=== PATIENT | female | born 1995 | race Caucasian/White ===

== ENCOUNTER → 2017-01-07 | Outpatient (CLI) | payer OTHER ==
[2017-01-07 12:38] LABS: CH 30.4; CHCM 34.2; HCT 32.4 % (34.0-46.0); HDW 2.53; HGB 11.2 gm/dL (11.4-16.0); MCH 30.9 pg (25.0-35.0); MCHC 34.6 g/dL (31.0-37.0); MCV 89.3 fL (80.0-100.0); Mean Platelet Volume 6.5; RBC 3.63 m/uL (3.80-5.40); RDW 13.1 % (11.5-15.5); WBC 11.5 k/uL (4.0-11.0)
[2017-01-07 12:45] LABS: Glucose 82 mg/dL (74-99); Non-African American GFR(MDRD) >60 (>60 ml/min/1.73 sqM)
[2017-01-07 13:16] LABS: Hepatitis B Surface Ag Index 0.05
[2017-01-07 22:43] LABS: Treponemal Ab Non-Reactive (Non-Reactive)
[2017-01-08 04:55] LABS: Toxoplasma Antibody (IgG) <3.0 IU/mL (<7.2)
== END | disposition home or self-care (01) ==
LOC: LABWHC1 12:17
PROVIDERS: ATTEND Obstetrics & Gynecology
DX: O26.812 Pregnancy related exhaustion and fatigue, second trimester (principal); Z3A.00 Weeks of gestation of pregnancy not specified
CPT/HCPCS: 36415; 82565; 82947; 85027; 86762; 86777; 86778; 86780; 86850; 86900; 86901; 87340; 87390

== ENCOUNTER → 2017-03-10 | Outpatient (CLI) | payer OTHER ==
[2017-03-10 12:24] LABS: CH 28.9; CHCM 33.3; HCT 33.8 % (34.0-46.0); HDW 2.57; HGB 11.4 gm/dL (11.4-16.0); MCH 29.5 pg (25.0-35.0); MCHC 33.8 g/dL (31.0-37.0); MCV 87.4 fL (80.0-100.0); Mean Platelet Volume 6.4; RBC 3.87 m/uL (3.80-5.40); RDW 12.3 % (11.5-15.5); WBC 11.5 k/uL (3.8-10.6)
== END | disposition home or self-care (01) ==
LOC: LABWHC1 10:56
PROVIDERS: ATTEND Obstetrics & Gynecology
DX: Z34.02 Encounter for supervision of normal first pregnancy, second trimester (principal)
CPT/HCPCS: 36415; 82950; 85027

== ENCOUNTER 2020-02-04 21:50 | Outpatient (CLI) | payer OTHER, BC ==
[2020-02-05 00:52] VITALS: BP 127/58; PULSE 86; RESP 16; TEMP 99.5
--- NOTE | 2020-02-05 05:34 | P.MSEPDOC ---
Presenting Problems - Arrival Data Date of Arrival on Unit: 02/05/20 Time of Arrival on Unit: 21:50 Mode of Transport: Ambulatory - Complaint OB-Reason for Admission/Chief Complaint: Decreased Movement Medical History - Information : 2 Para: 1 Term: 1 : 0 Abortions: Spontaneous or Elective: 0 Number of Living Children: 1 - Gestational Age Gestational Age by CORY (wks/days): 38 Weeks and 3 Days - History Complications: GBS+ Review of Systems - Review of Systems Constitutional: No problems Breast: No problems ENT: No problems Cardiovascular: No problems Respiratory: No problems Gastrointestinal: No problems Genitourinary: No problems Musculoskeletal: No problems Neurological: No problems Skin: No problems Vital Signs - Temperature Temperature: 99.5 F Temperature Source: Temporal Artery Scan - Pulse Right Pulse Rate: 86 Pulse Assessment Method: Automatic Cuff - Respirations Respiratory Rate: 16 Oxygen Delivery Method: Room Air O2 Sat by Pulse Oximetry: 98 - Blood Pressure Right Arm Blood Pressure: 127/58 Blood Pressure Mean: 81 Blood Pressure Source: Automatic Cuff Physician Notification (Pre) - Physician Notified Physician Notified Date: 02/05/20 Physician Notified Time: 22:15 New Order Received: Yes - Notification Comment Comment: pt is okay to go home Medical Screen Scoring (Post) - Cervical Exam Dilation: Exam Deferred Effacement: Exam Deferred Membranes: Intact - Uterine Contractions Frequency: N/A Duration: N/A Intensity: N/A - Maternal Vital Signs Maternal Temperature: N/A Maternal Blood Pressure: N/A Signs of Preeclampsia: N/A Maternal Respirations: N/A - Maternal Trauma Maternal Trauma: N/A - Assessment - Baby A Heart Rate: 140 Heart Rate - NICHD Category: Category I (Normal) = 0 NST: Reactive Position: N/A Station: N/A - Total Score Total Score - Baby A: 0 Total Score - Baby B: 0 Total Score - Baby C: 0 - Post Treatment Level of Risk Post Treatment Level of Risk - Baby A: Low (0-5) Post Treatment Level of Risk - Baby B: Low (0-5) Post Treatment Level of Risk - Baby C: Low (0-5) Disposition - Disposition OB Disposition: Discharge to home Discharge Date: 02/05/20 Discharge Time: 22:20 I agree with the RN Medical Screening Exam: Yes Risk & Benefit of care provided described in d/c instruction: Yes Diagnosis: DECREASED MOVEMENTS, THIRD TRIMESTER, FETUS 1 (Patient has a reactive NST and has perceived movement after arrival on labor and deliv almaz.)
== END 2020-02-04 22:20 | disposition home or self-care (01) ==
LOC: FBPOP 21:50
PROVIDERS: ATTEND Obstetrics & Gynecology
DX: O36.8130 Decreased fetal movements, third trimester, not applicable or unspecified (principal); Z3A.38 38 weeks gestation of pregnancy
CPT/HCPCS: 59025; G0463; 99213

== ENCOUNTER 2020-02-15 11:19 | Inpatient (IN) | payer BC ==
--- NOTE | 2020-02-21 19:10 | P.HPOB ---
History of Present Illness H&P Date: 02/21/20 Chief Complaint: Postdates induction of labor This patient is a pleasant 24 yr female EDC 02/16/2020 estimated gestational age 40 6/7 weeks who presents to L&D for postdates induction of labor. has been uncomplicated. testing and monitoring has been normal. Review of Systems Genitourinary: Reports Menstruation: Reports amenorrhea Past Medical History Past Medical History: No Reported History Additional Past Medical History / Comment(s): 1st at 40 2/7 wks SROM, 8#10 boy History of Any Multi-Drug Resistant Organisms: None Reported Past Surgical History: No Surgical Hx Reported Past Anesthesia/Blood Transfusion Reactions: No Reported Reaction Past Psychological History: No Psychological Hx Reported Smoking Status: Never smoker Past Alcohol Use History: None Reported Past Drug Use History: None Reported - Past Family History Mother Family Medical History: No Reported History Medications and Allergies Home Medications Medication Instructions Recorded Confirmed Type Pnv 11/Iron Fum/Folic Acid/Om3 1 each PO DAILY 06/08/17 02/21/20 History [Virt-Micheal Dha Softgel] Allergies Allergy/AdvReac Type Severity Reaction Status Date / Time No Known Allergies Allergy Verified 02/21/20 01:26 Exam - OBG Physical Exam Abdomen: bowel sounds normal, no diffuse tenderness, no bruit present, no guarding noted, no hepatomegaly, no splenomegaly, no mass Vulva: both: normal Vagina: normal moisture, no discharge Cervix: no lesion (Cervix in the office was 2 cm.), no discharge Results blood work: O positive, Rubella Immune, [id number] neg, Glucola normal, GBS positive, Ultrasounds have shown normal anatomy and growth. Assessment and Plan Assessment: This is a pleasant 24 yr old female 40 6/7 weeks who presents for postdates induction of labor. Positive GBS culture. Plan is antibiotic prophylaxis and induction of labor. Anticipate normal vaginal delivery. (1) Postmaturity , 40-42 weeks gestation Status: Acute Code(s): O48.0 - POST-TERM SNOMED Code(s): 14397662659513 (2) Group B streptococcal carriage complicating Status: Acute Code(s): O99.820 - STREPTOCOCCUS B CARRIER STATE COMPLICATING SNOMED Code(s): 728573619816454 (3) Elective induction of labor planned Status: Acute Code(s): SHX8056 - SNOMED Code(s): 521921408
[2020-02-22] MEDS ORDERED: OXYTOCIN 30 UNITS/500 ML NS 30 UNIT in SALINE 1 500ML.BAG IV SCH ×2 (06:26→07:00)
[2020-02-22] MEDS ORDERED: AMPICILLIN 2,000 MG in SODIUM CHLORIDE 0.9% 100 ML IVPB STA ×2 (06:26→06:59)
[2020-02-22] MEDS ORDERED: METHYLERGONOVINE 0.2 MG/ML 1 ML AMP IM PRN ×2 (06:26→06:59)
[2020-02-22] MEDS ORDERED: OXYTOCIN 10 UNIT/ML 1 ML VIAL IM PRN ×2 (06:26→06:59)
[2020-02-22] MEDS ORDERED: TERBUTALINE 1 MG/ML VIAL SQ PRN ×2 (06:26→06:59)
[2020-02-22] MEDS ORDERED: LACTATED RINGERS 1,000 ML IV SCH (06:26)
[2020-02-22] MEDS ORDERED: LIDOCAINE 0.5% (PF) 5 MG/ML (50 ML SDV) SQ PRN ×2 (06:26→06:59)
[2020-02-22] MEDS ORDERED: AMPICILLIN 1,000 MG in SODIUM CHLORIDE 0.9% 50 ML IVPB SCH (06:26)
[2020-02-22] MEDS ORDERED: CARBOPROST TROMETHAMINE 250 MCG/ML 1 ML AMP IM PRN ×2 (06:26→06:59)
[2020-02-22] MEDS ORDERED: BENZOCAINE/MENTHOL SPRAY 1 GM/SPRAY AEROSOL TOPICAL PRN ×2 (06:43→14:47)
[2020-02-22] MEDS ORDERED: SIMETHICONE 80 MG CHEWABLE PO PRN ×2 (06:43→14:47)
[2020-02-22] MEDS ORDERED: IBUPROFEN 600 MG TAB PO PRN (06:43)
[2020-02-22] MEDS ORDERED: LANOLIN CREAM 5 GM TUBE TOPICAL PRN ×2 (06:43→14:47)
[2020-02-22] MEDS ORDERED: ZOLPIDEM 5 MG TAB PO PRN ×2 (06:43→14:47)
[2020-02-22] MEDS ORDERED: diphenhydrAMINE 25 MG CAP PO PRN ×2 (06:43→14:47)
[2020-02-22] MEDS ORDERED: diphenhydrAMINE 50 MG/ML 1 ML VIAL IVP PRN ×3 (06:43→14:47)
[2020-02-22] MEDS ORDERED: ACETAMINOPHEN TAB 325 MG TAB PO PRN ×2 (06:43→14:47)
[2020-02-22] MEDS ORDERED: bisacodyL 10 MG SUPP RECTAL PRN (06:43)
[2020-02-22] MEDS ORDERED: HYDROCORTISONE 2.5% RECTAL CREAM 30 GM TUBE RECTAL PRN ×2 (06:43→14:47)
[2020-02-22] MEDS ORDERED: OXYTOCIN 20 UNITS/1000 ML NS 1,000 ML IV SCH ×2 (06:45→15:00)
[2020-02-22 07:21] LABS: Basophils # (A) 0.1 k/uL (0-0.2); Basophils % (A) 1 %; Eosinophils # (A) 0.2 k/uL (0-0.7); Eosinophils % (A) 2 %; HGB 11.4 gm/dL (11.4-16.0); Lymphocytes # (A) 2.3 k/uL (1.0-4.8); Lymphocytes % (A) 20 %; MCH 28.1 pg (25.0-35.0); MCHC 32.6 g/dL (31.0-37.0); Mean Platelet Volume 7.3; Monocytes # (A) 0.6 k/uL (0-1.0); Monocytes % (A) 5 %; Neutrophils # (A) 8.3 k/uL (1.3-7.7); Neutrophils % (A) 72 %; Platelet Count 294 k/uL (150-450); RBC 4.07 m/uL (3.80-5.40); RDW 13.9 % (11.5-15.5); WBC 11.6 k/uL (3.8-10.6)
[2020-02-22] MEDS: LACTATED RINGERS 1,000 ML IV SCH ×2 (07:26→10:33)
[2020-02-22] MEDS ORDERED: SENNOSIDES-DOCUSATE SODIUM 1 EACH TAB PO SCH ×2 (08:00→20:00)
[2020-02-22] MEDS ORDERED: ROPIVACAINE 5MG/ML 20ML VIAL ONE (09:13)
[2020-02-22] MEDS ORDERED: SODIUM CHLORIDE 0.9% 100 ML BAG ONE (09:13)
[2020-02-22] MEDS ORDERED: fentaNYL (PF) 50 MCG/ML 5 ML AMP ONE (09:13)
[2020-02-22] MEDS: AMPICILLIN 1,000 MG in SODIUM CHLORIDE 0.9% 50 ML IVPB SCH (11:14)
[2020-02-22] MEDS ORDERED: diphenhydrAMINE 50 MG CAP PO PRN (14:47)
[2020-02-22] MEDS: IBUPROFEN 600 MG TAB PO PRN ×2 (17:20→23:48)
--- NOTE | 2020-02-22 18:13 | P.PROBDLV ---
Vaginal Delivery Note - . Vaginal Delivery Note: Normal vaginal delivery viable female Apgars are 9 and 9 delivery time is 1404 hrs. Please see dictated H&P for intimate details of this patient's admission. Brief summary is a pleasant 24-year-old 2 para 1 female estimated gestational age 40-6/7 weeks who is admitted to labor and delivery for postdates induction of labor. Patient is a positive group B strep culture and therefore is given antibiotics on admission. Pitocin is started and she is artificial rupture membranes at 3 cm for clear fluid. Labor progresses normally and she does get an epidural for pain control. Patient gets to complete pushes the head to the perineum. Posterior perineum is supported and we have controlled delivery of the 's head over the intact perineum. Mouth and nares are bulb suctioned. There is a loose nuchal cord which is easily reduced. With gentle downward traction we then have deliver the anterior and posterior shoulder and rest of this infant's body. This is a vigorous viable female infant Apgars 9 and 9 delivery time was 1404 hrs. After delivery of the the is late on the mother's abdomen after the cord is done pulsating is doubly clamped and cut. It appears to be trivascular. The placenta is then spontaneously delivered intact. Estimated blood loss is 100 mL. There are no lacerations and no repair. and mother are stable delivery room.
[2020-02-23] MEDS: AMPICILLIN 1,000 MG in SODIUM CHLORIDE 0.9% 50 ML IVPB SCH ×2 (06:06→06:07)
[2020-02-23] MEDS: LACTATED RINGERS 1,000 ML IV SCH (06:06)
[2020-02-23] MEDS: IBUPROFEN 600 MG TAB PO PRN (06:07)
--- NOTE | 2020-02-23 06:13 | P.PNOBGVD ---
Subjective - Subjective Patient reports: Reports appetite normal, Reports voiding normally, Reports pain well controlled, Reports ambulating normally : doing well Objective - Latest Vital Signs Latest vital signs: Vital Signs Temp Pulse Resp BP Pulse Ox 02/23/20 00:00 98.7 F 89 18 138/68 98 02/22/20 20:00 99.0 F 93 18 135/61 98 02/22/20 16:30 98.3 F 100 16 134/62 02/22/20 16:00 94 15 109/58 02/22/20 15:30 90 15 121/57 02/22/20 15:15 81 15 124/63 02/22/20 15:00 91 15 128/66 02/22/20 14:45 87 15 131/80 02/22/20 14:30 98.0 F 105 H 16 134/74 02/22/20 06:25 96.6 F L 86 16 144/85 98 Intake and Output 02/22/20 02/22/20 02/23/20 14:59 22:59 06:59 Other: # Voids 1 - Exam Lungs: bilateral: normal Chest: Normal S1, Normal S2 Extremities: Present: normal Abdomen: Present: normal appearance, soft Uterus: Present: normal, firm - Labs Labs: Abnormal Lab Results - Last 24 Hours (Table) 02/22/20 Range/Units 07:00 WBC 11.6 H (3.8-10.6) k/uL Neutrophils # 8.3 H (1.3-7.7) k/uL Assessment and Plan Assessment: day #1. Patient is resting without complaints and wishes to go home. Vital signs are stable and she is afebrile. Uterus is firm nontender she's having normal lochia. My impression this is a normal course. Plan is to continue routine care and discharge home later today. (1) Postmaturity , 40-42 weeks gestation Current Visit: No Status: Acute Code(s): O48.0 - POST-TERM SNOMED Code(s): 80014807846308 (2) Group B streptococcal carriage complicating Current Visit: No Status: Acute Code(s): O99.820 - STREPTOCOCCUS B CARRIER STATE COMPLICATING SNOMED Code(s): 780975162294626 (3) Elective induction of labor planned Current Visit: No Status: Acute Code(s): [id number] - SNOMED Code(s): 908679680
--- NOTE | 2020-02-23 06:17 | P.DS ---
Providers Date of admission: 02/22/20 06:13 Expected date of discharge: 02/23/20 Attending physician: Gaurang Gonzalez Primary care physician: Stated None - Discharge Diagnosis(es) (1) Postmaturity , 40-42 weeks gestation Current Visit: No Status: Acute (2) Group B streptococcal carriage complicating Current Visit: No Status: Acute (3) Elective induction of labor planned Current Visit: No Status: Acute Hospital Course: Please see dictated H&P for intimate details of this patient's admission. Brief summary is a pleasant 24-year-old 2 para 1 female 40-6/7 weeks gestation admitted to labor and delivery for postdates induction. Patient is uncomplicated induction of labor was on have a vaginal delivery viable female infant. Please see dictated delivery note. day #1 patient without complaints she wishes to go home. Patient's felt be stable for discharge home follow up with [place] Procedures: Induction of labor and normal vaginal delivery Patient Condition at Discharge: Good Plan - Discharge Summary New Discharge Prescriptions: New Ibuprofen [Motrin] 600 mg PO Q6HR PRN #40 tab PRN Reason: Mild Pain Or Fever >= 100.5 No Action Pnv 11/Iron Fum/Folic Acid/Om3 [Virt-Micheal Dha Softgel] 1 each PO DAILY Discharge Medication List Pnv 11/Iron Fum/Folic Acid/Om3 [Virt-Micheal Dha Softgel] 1 each PO DAILY 06/08/17 [History] Ibuprofen [Motrin] 600 mg PO Q6HR PRN #40 tab 02/23/20 [Rx] Follow up Appointment(s)/Referral(s): Gaurang Gonzalez MD [STAFF PHYSICIAN] - 04/04/20 10:45 am Patient Instructions/Handouts: Vaginal Delivery (DC) Activity/Diet/Wound Care/Special Instructions: No intercourse or anything per vagina for 6 weeks. Please call if any fever, chills, excessive vaginal bleeding, and/or abdominal pain. Discharge Disposition: HOME SELF-CARE
[2020-02-23 07:24] LABS: Basophils % (A) 0 %; Eosinophils # (A) 0.2 k/uL (0-0.7); Eosinophils % (A) 1 %; HCT 32.1 % (34.0-46.0); HGB 10.2 gm/dL (11.4-16.0); Lymphocytes # (A) 2.1 k/uL (1.0-4.8); Lymphocytes % (A) 16 %; MCH 27.6 pg (25.0-35.0); MCHC 31.9 g/dL (31.0-37.0); MCV 86.7 fL (80.0-100.0); Mean Platelet Volume 7.1; Monocytes # (A) 0.5 k/uL (0-1.0); Monocytes % (A) 4 %; Neutrophils # (A) 10.5 k/uL (1.3-7.7); Neutrophils % (A) 78 %; Platelet Count 257 k/uL (150-450); WBC 13.6 k/uL (3.8-10.6)
[2020-02-23 07:49] VITALS: BP 109/71; PULSE 83; RESP 16; TEMP 97.7
== END 2020-02-23 13:30 | disposition home or self-care (01) | DRG 807 ==
LOC: 4FBP 02-22 06:13
PROVIDERS: ADMIT Obstetrics & Gynecology; ATTEND Obstetrics & Gynecology
PROC: 00HU33Z Insertion of Infusion Device into Spinal Canal, Percutaneous Approach (ICD-10-PCS; principal; 2020-02-22)
PROC: 10907ZC Drainage of Amniotic Fluid, Therapeutic from Products of Conception, Via Natural or Artificial Opening (ICD-10-PCS; principal; 2020-02-22)
PROC: 3E033VJ Introduction of Other Hormone into Peripheral Vein, Percutaneous Approach (ICD-10-PCS; principal; 2020-02-22)
PROC: 10E0XZZ Delivery of Products of Conception, External Approach (ICD-10-PCS; principal; 2020-02-22)
PROC: 3E0R3BZ Introduction of Anesthetic Agent into Spinal Canal, Percutaneous Approach (ICD-10-PCS; principal; 2020-02-22)
DX: O48.0 Post-term pregnancy (principal); Z37.0 Single live birth; O69.81X0 Labor and delivery complicated by cord around neck, without compression, not applicable or unspecified; O99.824 Streptococcus B carrier state complicating childbirth; Z3A.40 40 weeks gestation of pregnancy; Z79.899 Other long term (current) drug therapy
CPT/HCPCS: 85025; 86850; 86900; 86901

== ENCOUNTER 2020-02-21 01:18 | Outpatient (CLI) | payer BC ==
[2020-02-21 03:00] VITALS: BP 131/68; PULSE 75; RESP 16; TEMP 97.6
--- NOTE | 2020-02-24 11:16 | P.MSEPDOC ---
Presenting Problems - Arrival Data Date of Arrival on Unit: 02/21/20 Time of Arrival on Unit: 01:18 Mode of Transport: Wheelchair - Complaint OB-Reason for Admission/Chief Complaint: Possible Onset of Labor Medical History - Information : 2 Para: 1 Term: 1 : 0 Abortions: Spontaneous or Elective: 0 Number of Living Children: 1 - Gestational Age Gestational Age by CORY (wks/days): 40 Weeks and 5 Days Review of Systems - Review of Systems Constitutional: No problems Breast: No problems ENT: No problems Cardiovascular: No problems Respiratory: No problems Gastrointestinal: No problems Genitourinary: No problems Musculoskeletal: No problems Neurological: No problems Skin: No problems Vital Signs - Temperature Temperature: 97.6 F Temperature Source: Temporal Artery Scan - Pulse Right Pulse Rate: 75 Pulse Assessment Method: Automatic Cuff - Respirations Respiratory Rate: 16 Oxygen Delivery Method: Room Air O2 Sat by Pulse Oximetry: 100 - Blood Pressure Right Arm Blood Pressure: 131/68 Blood Pressure Mean: 89 Blood Pressure Source: Automatic Cuff Medical Screen Scoring (Pre) - Cervical Exam Dilation: 1-3 cm = 1 Membranes: Intact - Uterine Contractions Frequency: > or = 36 weeks =2 Duration: > 40 seconds = 2 Intensity: N/A - Maternal Vital Signs Maternal Temperature: N/A Maternal Blood Pressure: N/A Signs of Preeclampsia: N/A Maternal Respirations: N/A - Maternal Trauma Maternal Trauma: N/A - Assessment - Baby A Baseline FHR: 140 Heart Rate - NICHD Category: Category I (Normal) = 0 NST: Reactive Position: N/A Station: N/A - Total Score - Baby A Total Score - Baby A: 5 - Total Score - Baby B Total Score - Baby B: 5 - Total Score - Baby C Total Score - Baby C: 5 - Level of Risk - Baby A Level of Risk - Baby A: Low (0-5) - Level of Risk - Baby B Level of Risk - Baby B: Low (0-5) - Level of Risk - Baby C Level of Risk - Baby C: Low (0-5) Physician Notification (Pre) - Physician Notified Physician Notified Date: 02/21/20 Physician Notified Time: 02:29 New Order Received: Yes - Notification Comment Comment: Pt may be given the option to stay for extended monitoring since she is post dates, ashwin and GBS +. If pt desires she can go home to return when more active. Pt and SO discussed and they will go home at this time. Disposition - Disposition OB Disposition: Discharge to home Discharge Date: 02/21/20 Discharge Time: 02:48 I agree with the RN Medical Screening Exam: Yes Risk & Benefit of care provided described in d/c instruction: Yes Diagnosis: FALSE LABOR AT OR AFTER 37 COMPLETED WEEKS OF GESTATION
== END 2020-02-21 02:50 | disposition home or self-care (01) ==
LOC: FBPOP 01:18
PROVIDERS: ATTEND Obstetrics & Gynecology
DX: O47.1 False labor at or after 37 completed weeks of gestation (principal); Z3A.40 40 weeks gestation of pregnancy
CPT/HCPCS: 59025; 99213